=== PATIENT | female | born 1950 | race Caucasian/White ===

== ENCOUNTER 2020-03-11 07:29 | Day surgery (SDC) | payer OTHER ==
[~2020-03-11] VITALS: Ht 162.6 cm; Wt 52.2 kg
--- NOTE | ~2020-03-11 | O ---
[facility] [address] [place] [address] OPERATIVE REPORT Name: GILBERTO LANDRUM Room #: 150-7 [facility] M.R.#: [id number] Admission: 03/11/20 Attend Phys: Nicolas Condon MD Discharge: Date of : 48 Report #: [id number] THIS REPORT FOR: cc: FAM - Family physician unknown FAM - Family physician unknown Nicolas Condon MD ~ DATE OF SERVICE: 03/11/2020 PREOPERATIVE DIAGNOSIS: Tumor of the right lower lid, cheek, lateral canthus and medial canthus. POSTOPERATIVE DIAGNOSIS: Tumor of the right lower lid, cheek, lateral canthus and medial canthus. PROCEDURES: Excision of tumor of right lower lid, medial canthus, lateral canthus and cheek with musculocutaneous flap repair defect of right lateral canthus with temporalis muscle, vascularized tarsoconjunctival flap from right upper lid to right lower lid with full-thickness skin graft from left upper lid to right lower lid. SURGEON: Nicolas Condon MD CHANNELER: None. ANESTHESIA: General. COMPLICATIONS: None. INDICATIONS FOR SURGERY: This pleasant 69-year-old woman has a nodular ulcerative lesion encompassing her entire right lower lid through the lateral canthus. She has a history of prior basal cell carcinomas. This lesion is somewhat atypical and that appears to be marching across the eyelid margin and is not necessarily going out on the skin, it is extending back into the orbit. She presents today for excision of this lesion with frozen sections and subsequent reconstruction of that defect. Informed consent was obtained to include but not limited to the potential risk for loss of vision, bleeding, infection, failure to improve the problem, the potential need for further surgery or treatment. DESCRIPTION OF PROCEDURE: The patient was taken to the operating room where general anesthesia was administered. The right lower lid, the right cheek, the right medial canthus, the right lateral canthus and the right infratemporal fossa were anesthetized with Xylocaine with epinephrine mixed with Marcaine and Wydase. The patient was subsequently prepped and draped in the usual sterile fashion. [address] [address] OPERATIVE REPORT Name: GILBERTO LANDRUM Room #: 150-7 [facility]..#: [id number] Admission: 03/11/20 Attend Phys: Nicolas Condon MD Discharge: Date of : 48 Report #: [id number] A fine tip skin marking pen was then utilized to outline the lesion, taking it back into normal appearing tissue medially, laterally and inferiorly. This removed basically the whole lower lid short of the lacrimal system including the lateral canthus. The incisions were then made and the dissection carried down deep to the level of the periosteum inferiorly. The specimen was excised with Kailey scissors and oriented on a drawing for the waiting pathologist. Hemostasis was achieved in the field with diligent pinpoint monopolar cautery. The pathologist snap froze that specimen and felt that the margins were clear, but she did not see anything definitive about the tissue in the central portion of the specimen. She preferred to defer that for permanent sections. The wound was diligently inspected to make sure there were no areas that was still concerned about and this was indeed the case. A musculocutaneous flap was then developed laterally based on the temporalis muscle as the plan for the lateral repair. An incision was then made laterally extended superotemporally towards the occiput to allow access to the tissue in the temporalis fossa. The flap was then developed as the muscle was split into a superficial to deep component. Hemostasis was then re-achieved. The flap was then advanced and secured after hemostasis had been achieved with diligent pinpoint monopolar cautery. The flap was secured most laterally with Vicryl sutures deep attached to the periosteum to give a stable base for the remainder of the lid reconstruction. The superficial closure was accomplished with the subcutaneous closure of Vicryl sutures and then a final closure of 6-0 plain gut sutures, disoriented the incision superotemporally. The right upper lid was then everted and the same aliquot of anesthetic used at beginning of the case was used to anesthetize the lid for a tarsoconjunctival flap. An incision was then made across the tarsal plate with a 15 blade, 3.5 mm above the mature lashes. The dissection was then carried out across that plane across the width of the lid and a tarsoconjunctival flap developed utilizing enough dissection to only leave a thin layer of conjunctiva posteriorly. The Franco's muscle was from the underlying tissue. This vascularized tarsoconjunctival flap was then secured into the bed in the right lower lid with 6-0 Vicryl sutures. The residual anterior lamellar defect at this point was outlined in the lateral left upper lid. Those incisions were then made with a Gissell scissor and a full-thickness skin graft removed once again utilizing thin section techniques. Hemostasis was achieved in the field with pinpoint monopolar cautery. The donor site was then closed with 6-0 plain gut sutures. The full thickness skin graft was defatted and subsequently secured into its planned right lower lid defect with cardinal bites of 7-0 Vicryl suture and then a final closure of 6-0 plain gut suture. The right eye was then cleaned and [address] [address] OPERATIVE REPORT Name: GILBERTO LANDRUM Room #: 150-7 [facility]..#: [id number] Admission: 03/11/20 Attend Phys: Nicolas Condon MD Discharge: Date of : 48 Report #: [id number] dressed with erythromycin ointment followed by Telfa pad, which was held in place with 2 eye pads, silk tape, and Mastisol. The left upper lid incision was then dressed with erythromycin ophthalmic ointment. The patient was subsequently transported to the recovery area having tolerated the procedures well with no anesthetic or operative complications being noted. By: 1104 1125 Nicolas Condon MD /nt
[~2020-03-11 07:29] MED LIST: ABILIFY 5 MG TAB5 M1 PO; ANORO ELLIPTA1 EACH INH; ARIMIDEX1 MG PO; CARVEDILOL12.5 MG PO; DIFLUCAN100 MG PO; DULOXETINE HCL60 MG PO; GABAPENTIN600 M1 PO; HYDROCODON-ACE1 EAC8 PO; LIPITOR80 MG PO; PROAIR HFA8.5 GM INH; REMERON30 MG PO; RESTORIL30 MG PO
[2020-03-11 08:45] VITALS: BP 115/73
--- NOTE | 2020-03-12 16:06 | PATH ---
[facility] [place] [address] PATHOLOGY RPT PROCEDURE Name: GILBERTO LANDRUM Room #: DEP [facility] M.R.#: [id number] Admission: 03/11/20 Date of : 48 Discharge: 03/11/20 Report #: [id number] Path Case #: [id number] [facility] Accession Number: [id number] . 01 Material submitted: . eye - LESION RIGHT EYELID. Modifiers: right . 01 Clinical history: . LESION POSSIBLE BCCA . 02 Frozen section diagnosis: . FROZEN SECTION DIAGNOSIS (Dr. Amee Giraldo) . FSA1. Lesion right lower lid, excision: - No definitive invasive carcinoma seen at margins on FS slides. . These findings are discussed with Dr. Nicolas Condon and a written report is placed in the patient's chart. . . FROZEN SECTION GROSS DESCRIPTION Specimen is received fresh from the OR labeled with the patient's name and "lesion right lower lid", consists of a rectangular specimen measuring approximately 1.8 x 0.5 x 0.5 cm. The specimen is oriented as medial inferior and lateral. The superior border of the specimen represents the lid (no eyelashes present). The entire superior border is inked green, the medial edge of the specimen is inked red, the inferior border is inked blue, the lateral edge is inked orange, and the deep margin is inked black. At this point, specimen is sectioned into 5 pieces and submitted for frozen section as FSA1 in entirety, this is subsequently submitted for permanent sections as A1. (IUV:rian; 03/11/2020) . Frozen section performed at [facility], [address], [place] [address]. IZV/MBRosamaria . 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 - Focal polypoid tissue with scar and reactive changes, consistent with repair. - Margins of resection with no evidence of malignancy. . (IUV:mml; 03/12/2020) [facility] 03/12/2020 1249 Local [facility] [address] [facility] [place] [address] PATHOLOGY RPT PROCEDURE Name: GILBERTO LANDRUM Room #: DEP [facility] M.R.#: [id number] Admission: 03/11/20 Date of : 48 Discharge: 03/11/20 Report #: [id number] Path Case #: [id number] . 02 Electronically signed: . Amee Giraldo MD, Pathologist NPI- [id number] . 03 Gross description: . PLEASE SEE GROSS DESCRIPTION UNDER FROZEN SECTION DIAGNOSIS. /MBR 03/11/2020 1202 Local . 02 Pathologist provided ICD-10: D04.112 . 02 CPT . 821995, [id number] Specimen Comment: A courtesy copy of this report has been sent to [phone] Specimen Comment: Report sent to Performed at: [address], [place], [place] [id number] MD Morris Amin MD Phone: [phone] Performed at: [address] [id number] MD Amee Giraldo MD Phone: [phone] Performed at: [address], [place], [place] [id number] MD Jack Kurtz MD Phone: [phone]
== END 2020-03-11 12:05 | disposition home or self-care (01) ==
LOC: OR 07:29 → TBA 07:29 → OR 12:05
PROVIDERS: ATTEND Ophthalmology
DX: D04.112 Carcinoma in situ of skin of right lower eyelid, including canthus (principal); L57.0 Actinic keratosis; I10 Essential (primary) hypertension; E78.5 Hyperlipidemia, unspecified; J43.9 Emphysema, unspecified; Z98.890 Other specified postprocedural states; Z79.899 Other long term (current) drug therapy; Z90.710 Acquired absence of both cervix and uterus; Z86.73 Personal history of transient ischemic attack (TIA), and cerebral infarction without residual deficits; Z85.3 Personal history of malignant neoplasm of breast; Z85.828 Personal history of other malignant neoplasm of skin; Z87.891 Personal history of nicotine dependence; Z98.41 Cataract extraction status, right eye; Z98.42 Cataract extraction status, left eye; Z88.2 Allergy status to sulfonamides; Z88.8 Allergy status to other drugs, medicaments and biological substances
CPT/HCPCS: 50010; 50101; 50386; 50398; 51636; 56528; 56531; 62110; 62900; 64037; 70005

== ENCOUNTER 2020-05-27 08:29 | Day surgery (SDC) | payer OTHER ==
[~2020-05-27] VITALS: Ht 162.6 cm; Wt 51.7 kg
--- NOTE | ~2020-05-27 | O ---
[facility] [address] [place] [address] OPERATIVE REPORT Name: GILBERTO LANDRUM Room #: 150-11 [facility] M.R.#: [id number] Admission: 05/27/20 Attend Phys: Nicolas Condon MD Discharge: Date of : 48 Report #: [id number] THIS REPORT FOR: cc: JEANETTE MENDES Physician not on staff Nicolas Condon MD ~ DATE OF SERVICE: 05/27/2020 PREOPERATIVE DIAGNOSIS: Squamous cell carcinoma, right lower lid. POSTOPERATIVE DIAGNOSIS: Squamous cell carcinoma, right lower lid. PROCEDURE: Second stage Sommers reconstruction, right lower lid. SURGEON: Nicolas Condon MD. COMMAND CENTER ANALYST: None. ANESTHESIA: General. COMPLICATIONS: None. INDICATIONS FOR SURGERY: This pleasant 69-year-old woman had a squamous cell carcinoma excised from her right lower lid with a Sommers vascularized tarsoconjunctival flap from the right upper lid and the right lower lid back in March. She presents today for a planned second stage reconstruction of this right lower lid. Informed consent was obtained to include but not limited to the potential risk for loss of vision, bleeding, infection, and the potential need for further surgery or treatment. DESCRIPTION OF PROCEDURE: The patient was taken to the operating room where general anesthesia was administered. The right lower lid and the right upper lid were then anesthetized transconjunctivally and transcutaneously with Xylocaine with epinephrine mixed with Marcaine and Wydase. She was subsequently prepped and draped in the usual sterile fashion. A groove director was then placed behind the pedicle from the upper lid into the lower lid. A high temp cautery was then used to separate the pedicle allowing some conjunctival tissue to be left inferiorly to be draped over the right lower lid margin for final closure. The right upper lid was then everted and the donor stump was trimmed back to the level of the conjunctiva in Franco's muscle. Minimal cautery was used throughout the case in order to improve the patient's postoperative comfort. The wound was then cleaned and dressed with erythromycin ophthalmic ointment. [address] [address] OPERATIVE REPORT Name: GILBERTO LNADRUM Room #: 150-11 [facility]..#: [id number] Admission: 05/27/20 Attend Phys: Nicolas Condon MD Discharge: Date of : 48 Report #: [id number] The patient subsequently transported to the recovery area having tolerated the procedure well with no anesthetic or operative complications being noted. By: 1150 1234 Nicolas Condon MD /nt
[~2020-05-27 08:29] MED LIST changes: +TRAMADOL 50 MG50 MG PO
[2020-05-27 11:18] VITALS: BP 119/74
== END 2020-05-27 12:40 | disposition home or self-care (01) ==
LOC: OR 08:29 → TBA 08:29 → OR 10:57
PROVIDERS: ATTEND Ophthalmology
DX: C44.1222 Squamous cell carcinoma of skin of right lower eyelid, including canthus (principal); I10 Essential (primary) hypertension; E78.5 Hyperlipidemia, unspecified; J43.9 Emphysema, unspecified; F32.9 Major depressive disorder, single episode, unspecified; F41.9 Anxiety disorder, unspecified; F17.210 Nicotine dependence, cigarettes, uncomplicated; Z98.890 Other specified postprocedural states; Z79.899 Other long term (current) drug therapy; Z86.73 Personal history of transient ischemic attack (TIA), and cerebral infarction without residual deficits; Z85.828 Personal history of other malignant neoplasm of skin; Z85.3 Personal history of malignant neoplasm of breast; Z98.41 Cataract extraction status, right eye; Z98.42 Cataract extraction status, left eye; Z90.710 Acquired absence of both cervix and uterus; Z88.2 Allergy status to sulfonamides; Z88.8 Allergy status to other drugs, medicaments and biological substances
CPT/HCPCS: 50010; 50101; 50386; 50398; 62110; 62900; 70005